=== PATIENT | male | born 1955 | race Caucasian/White ===

== ENCOUNTER → 2024-03-19 10:45 | Outpatient (REF) | payer MEDICARE, OTHER, SELFPAY | LOC: RAD 10:45 | PROVIDERS: ATTENDING PHYSICIAN Family Medicine | DX: M25.511 Pain in right shoulder (principal); M25.512 Pain in left shoulder; M54.42 Lumbago with sciatica, left side; M54.41 Lumbago with sciatica, right side; G89.29 Other chronic pain | CPT/HCPCS: 72072; 72110; 73030 ==